=== PATIENT | female | born 1980 | race Caucasian/White ===

== ENCOUNTER 2019-03-27 09:59 | Emergency (ER) | payer OTHER, SELFPAY ==
[2019-03-27 10:00] VITALS: BP 150/114; PULSE 99; RESP 16; TEMP 36.5; BMI 25.7
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
[2019-03-27] MEDS: Ketorolac 30 MG/ML Syringe IV (10:52)
[2019-03-27] MEDS: 0.9% Normal Saline 1,000 ML 150 ML IV (10:52)
[2019-03-27 11:52] VITALS: BP 124/68; PULSE 68; RESP 15
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
[2019-03-27 14:15] VITALS: PULSE 66; RESP 14
== END 2019-03-27 14:15 | disposition home or self-care (01) ==
PROVIDERS: Emergency Provider Emergency Medicine; Family Provider Family Medicine; PCP Family Medicine
DX: S16.1XXA Strain of muscle, fascia and tendon at neck level, initial encounter (principal); M62.838 Other muscle spasm; X50.1XXA Overexertion from prolonged static or awkward postures, initial encounter; Y93.89 Activity, other specified; Y92.89 Other specified places as the place of occurrence of the external cause; Y99.8 Other external cause status
CPT/HCPCS: 72141; 96361; 96374; 99283; J7030; A4216

== ENCOUNTER 2019-11-24 22:04 | Emergency (ER) | payer OTHER, SELFPAY ==
[2019-11-24 22:05] VITALS: BP 132/81; PULSE 124; RESP 15; TEMP 38.2; O2SAT 95; BMI 25.2
--- NOTE | 2019-11-24 22:20 | ED.DCSUM_ITS ---
History of Present Illness Chief Complaint: General Illness Informant: Patient Onset: Yesterday Context: Sudden Onset Timing: Continuous Quality: malaised, fevers, achy Location: all over Current Severity: Severe Maximum Severity: Severe Worsened by: vomiting Relieved by: nothing Associated Symptoms: fever to 104. myalgias. [employer] cough. n/v w/o blood. Narrative: Malaise and myalgias, cough, vomiting, headache. No neck stiffness or confusion. 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 Past Medical History - Allergies and Home Meds Allergies/Adverse Reactions: Allergies Sulfa (Sulfonamide Antibiotics) Allergy (Verified 11/24/19 22:09) Hives Primary Care Physician: Luis Hong MD [Primary Care Provider] - As Needed Surgical History: - - ASD repair Lives: With Family Smoking Status: Never smoker Review of Systems General: Reports: Chills, Fever, Malaise. Denies: Sweats Eyes: Denies: Visual changes - bilaterally, Diplopia ENT: Reports: Sore throat. Denies: Bilateral ear pain, Rhinorrhea Cardiovascular: Denies: Chest pain, Palpitations Respiratory: Reports: Cough. Denies: Dyspnea, Sputum, Dyspnea on exertion Gastrointestinal: Reports: Nausea, Vomiting. Denies: Abdominal pain, Diarrhea, Melena, Hematochezia Genitourinary: Denies: Dysuria, Hematuria, Frequency Musculoskeletal: Reports: Myalgias. Denies: Neck pain, Back pain, Swelling Skin: Denies: Rash, Wounds Neurological: Reports: Headache. Denies: Weakness, Numbness Physical Exam Vital Signs/Narrative: Vital Signs Temp Pulse Resp BP Pulse Ox 11/24/19 22:05 100.8 F H 124 H 15 132/81 H 95 Inital Vital Signs reviewed: Yes General: Well nourished, Well developed, No Acute Distress Head: Normocephalic, Atraumatic Eyes: Perrl, EOMI ENT: Moist mucous membranes, No rhinorrhea, - - POP clear Neck: Supple, Nontender, No lymphadenopathy Cardiovascular: Regular rate, Regular rhythm, No murmurs, Tachycardia Respiratory: No distress, CTA bilaterally, Chest nontender Abdomen: Soft, Nontender, Nondistended, Normal bowel sounds Back: Nontender, Normal Inspection Extremities: Nontender, No edema, - - orthotic boot on RLE due to foot fracture. no hot, erythemetous, swollen joints. Skin: Normal color, No rash, No Trauma Neurological: Alert, Oriented x3, Cranial nerves II-XII grossly intact, Normal Strength, Normal Sensation, Normal Gait Psychological: Normal affect, Normal Mood Diagnostic/Tx/Re-eval - Medical Decision Making Suspect patient has influenza. She was treated with a liter of fluid, Toradol, GI cocktail, Reglan, and Tamiflu. She felt much better on reevaluation. She is comfortable with discharge plan and prescription for Tamiflu was offered. Symptomatic/supportive care with hydration and fever control advised. ED Disposition - Plan for ED Patient: Disposition: Home or Assisted Living Diagnosis: Influenza-like illness Instructions: INFLUENZA (Adult) Prescriptions: Oseltamivir Phosphate [Tamiflu] 75 mg PO BID #9 cap Prescription Printed Ondansetron [Zofran Odt] 4 - 8 mg PO Q8H PRN PRN #16 tab PRN Reason: Nausea Prescription Printed Referrals: Luis Hong MD [Primary Care Provider] - As Needed
[2019-11-24] MEDS: 0.9% Normal Saline 1,000 ML 999 ML IV (22:38)
[2019-11-24] MEDS: Ondansetron 4 MG/2 ML Vial IV (22:38)
[2019-11-24] MEDS: Ketorolac 30 MG/ML Syringe IV (22:39)
[2019-11-24] MEDS: Oseltamivir Phosphate 75 MG Capsule PO (23:24)
== END 2019-11-25 00:20 | disposition home or self-care (01) ==
PROVIDERS: Emergency Provider Emergency Medicine; PCP Family Medicine
DX: J11.1 Influenza due to unidentified influenza virus with other respiratory manifestations (principal)
CPT/HCPCS: 96361; 96374; 96375; 99285; J7030; A4216; J2405

== ENCOUNTER 2022-01-28 11:08 | Emergency (ER) | payer OTHER, SELFPAY ==
[2022-01-28 11:08] VITALS: BP 161/97; PULSE 64; RESP 18; TEMP 36.2; O2SAT 99; BMI 26.5
--- NOTE | 2022-01-28 11:18 | EKG12_ITS ---
Test Reason : CHEST PAIN Blood Pressure : / mmHG Vent. Rate : 062 BPM Atrial Rate : 062 BPM P-R Int : 152 ms QRS Dur : 088 ms QT Int : 430 ms P-R-T Axes : -30 024 062 degrees QTc Int : 436 ms Unusual P axis, possible ectopic atrial rhythm Low voltage QRS Abnormal ECG Confirmed by MAE NICHOLS, ELVA ([id number]), managing editor JOEY LINDA ([id number]) on 01/31/2022 1:53:03 PM Referred By: ELISA Confirmed By:ELVA WALL MD
--- NOTE | 2022-01-28 11:26 | RAD_ITS ---
STUDY: X-RAY CHEST REASON FOR EXAM: Female, 41 years old. Chest pain TECHNIQUE: Single AP portable view of the chest. COMPARISON: None. FINDINGS: EKG electrodes are seen. The lungs are clear and expanded. There is no demonstrated pleural abnormality. Normal size heart. Normal mediastinum and rogelio. Normal visualized pulmonary arteries. Normal visualized aortic arch and descending thoracic aorta. Normal visualized thoracic spine. Normal visualized ribs, clavicles, and shoulders. There is no demonstrated abnormality of the visualized soft tissue structures of the upper abdomen. RAD/Chest 1 View (Portable) IMPRESSION: Normal x-ray examination of the chest. Electronically Signed: Tashi Khan MD at 12:00 EDT ,
--- NOTE | 2022-01-28 11:39 | ED.VIS.CHEST ---
HPI History of Present Illness Chief Complaint: Chest Pain Narrative Narrative: 40-year-old female presenting with chest pain which is retrosternal. She describes it as initially kind of an aching which dissipates after seconds. No associated diaphoresis. No radiation of pain. No associated shortness of breath. No fever, chills, cough. No known injury. Patient states she has some leaky valves and history of ASD defect which was repaired as a child. No HI history. No history of DVT/PE and no risk factors. PFSH PFSH Medical History ASD (atrial septal defect) Leaky heart valve Home Medications multivitamin 1 ea PO DAILY 03/27/19 [History Last Taken Unknown] omega 7-vix-krp-fish oil 1 tab PO DAILY 03/27/19 [History Last Taken Unknown] cetirizine 10 mg PO DAILY 11/24/19 [History Last Taken Unknown] ondansetron 4 - 8 mg PO Q8H PRN PRN #16 tab 11/24/19 [Rx Last Taken Unknown] oseltamivir 75 mg PO BID #9 cap 11/24/19 [Rx Last Taken Unknown] Allergy/AdvReac Type Severity Reaction Status Date / Time Sulfa (Sulfonamide Allergy Hives Verified 01/28/22 11:12 Antibiotics) Social History Smoking Status: Never smoker ROS [facility] ED Constitutional Constitutional ED: Denies chills or fever(s) Eyes Eyes: Denies blurry vision or change in vision ENT ENT ED: Denies rhinorrhea or sore throat Cardiovascular Cardiovascular: Reports as per HPI Respiratory/Chest Respiratory/Chest: Denies cough or dyspnea Gastrointestinal Gastrointestinal: Denies abdominal pain, nausea or vomiting Genitourinary Genitourinary ED: Denies dysuria or hematuria Musculoskeletal Musculoskeletal: Denies arthralgias or myalgias Integumentary Denies Abrasions or rash Neurologic Neurologic: Denies headache(s) or weakness Psychiatric Psychiatric: Denies anxiety or depression EXAM Physical Exam Const Vital Signs: 01/28/22 11:08 01/28/22 11:18 Temperature 97.1 F L Temperature Source Temporal Pulse Rate 64 Respiratory Rate 18 Respiratory Effort Normal Non-Labored Respiratory Pattern Normal Blood Pressure 161/97 H Blood Pressure Mean 118 Pulse Ox 99 Oxygen Delivery Method Room Air Room Air Positive well developed General Appearance ED: well developed and NAD; Negative for pallor HEENT normocephalic and atraumatic Eyes PERRL and EOMs intact bilaterally Chest Wall inspection of chest normal and palpation of chest normal Resp normal respiratory effort Effort and Inspection: respiratory distress Cardio regular rate and regular rhythm GI normal to inspection, nondistended, normoactive bowel sounds Extremity normal to inspection General Extremety ED: Negative for edema or tenderness General Extremity: Negative for edema Neuro oriented x3 and no sensory deficits noted Sensorium / Orientation: awake and alert Motor Exam: strength 5/5 throughout Psych mental status grossly normal Skin no rashes or lesions noted General Skin Exam: Negative for jaundice or pallor Heart Score History: Slightly/Non-Suspicious ECG: Normal Age: </= 45 years Risk Factors: No Risk Factors Troponin: </= Normal Limit Score: 0 MDM MDM MDM Narrative Medical decision making narrative: Patient presenting with fleeting episodes of chest pain which are retrosternal. No history of HI. She does have hyperlipidemia which she is currently trying to control with diet. She is not on any medication for this. She does not have any other cardiac risk factors. EKG on my interpretation is a sinus rhythm with a ventricular rate of 62 bpm without sign of ischemic change. Chest x-ray on my interpretation shows no acute cardiopulmonary process and the radiologist agree. Patient is PERC negative. Patient CBC and BMP are unremarkable. High-sensitivity troponin is less than 3. Patient's pain does not sound cardiac in nature and orders that sound pleuritic or sharp in nature. I do not believe she is repeat blood work or imaging. I feel she is stable for discharge home. She is counseled to follow-up with her primary care provider to ensure resolution. Impression: 1. Chest pain noncardiac Lab Data Labs: Laboratory Results - last 24 hr 01/28/22 01/28/22 11:25 11:25 WBC 8.6 RBC 4.51 Hgb 12.7 Hct 38.2 MCV 84.7 MCH 28.2 MCHC 33.2 RDW Std Deviation 36.4 RDW Coeff of Francheska 11.9 Plt Count 408 MPV 8.9 Immature Gran % (Auto) 0.300 Neut % (Auto) 55.1 Lymph % (Auto) 34.0 [place] % (Auto) 6.9 Eos % (Auto) 3.2 Baso % (Auto) 0.5 Absolute Neuts (auto) 4.8 Absolute Lymphs (auto) 2.94 Nucleated RBC % 0 Sodium 135 L Potassium 4.1 Chloride 103 Carbon Dioxide 29.0 Anion Gap 3 L BUN 8 Creatinine 0.62 Estim Creat Clear Calc 96.78 Est GFR (MDRD) Af Amer 135 Est GFR (MDRD) Non-Af 111 BUN/Creatinine Ratio 12.9 Glucose 88 Calcium 9.3 Troponin I High Sens < 3 L Radiography Diagnostic Testing: Clinical Impression(s) from Imaging Studies Chest X-Ray 01/28/22 11:26 IMPRESSION: Normal x-ray examination of the chest. Electronically Signed: Tashi Khan MD at 12:00 EDT , Discharge Plan Triage Chief Complaint: Chest Pain ED Provider: Varinder Cordero Dx/Rx/DC Orders Instructions: ED Chest Pain, Noncardiac Prescriptions: No Action multivitamin 1 EACH tablet 1 ea PO DAILY RF: 0 omega 4-rki-vxx-fish oil 500 MG capsule,delayed release(DR/EC) 1 tab PO DAILY RF: 0 cetirizine 10 MG capsule 10 mg PO DAILY RF: 0 oseltamivir 75 MG capsule 75 mg PO BID Qty: 9 RF: 0 ondansetron 4 MG tablet 4 - 8 mg PO Q8H PRN PRN (Reason: Nausea) Qty: 16 RF: 0 Primary Care Provider: Luis Hong Referrals: Luis Hong MD [Primary Care Provider] - Disposition Disposition: Home, Self Care
[2022-01-28 11:41] LABS: Absolute Lymphocyte Count 2.94 X10^3/uL (0.83-4.51); Absolute Neutrophil Count 4.8 X10^3/uL (2.0-7.7); Basophil# 0.04 X10^3/uL; Basophil% 0.5 % (0-1); Eosinophil# 0.28 X10^3/uL; Eosinophils% 3.2 % (0-5); Hematocrit 38.2 % (37-47); Hemoglobin 12.7 g/dL (12.0-15.0); Lymphocyte # 2.94 X10^3/ul (0.83-4.51); Mean Corp Hgb Conc 33.2 g/dL (32-36); Mean Corpuscular Hgb 28.2 pg (27.0-32.0); Mean Corpuscular Volume 84.7 fL (81-99); Mean Platelet Vol. 8.9 fl (6.2-12.0); Monocyte% 6.9 % (0-10); NRBC Flagged by Analyzer 0 % (0-5); Neutrophil # 4.75 X10^3/uL (2.7-7.7); Neutrophil % 55.1 % (47-70); Platelet Count 408 K/mm3 (150-450); RBC Distribution Width CV 11.9 % (11.6-14.6); RBC Distribution Width SD 36.4 fl (35.1-43.9); Red Blood Count 4.51 M/mm3 (4.2-5.4); White Blood Count 8.6 K/mm3 (4.4-11.0)
[2022-01-28 11:56] LABS: Anion Gap 3 (5-15); BUN 8 mg/dL (7-18); BUN/Creat Ratio 12.9 RATIO (10-20); Calcium,Total 9.3 mg/dL (8.5-10.1); Chloride 103 mmol/L (98-107); Creatinine, Serum 0.62 mg/dL (0.55-1.02); EST Glomerular Filtration Rate 111 mL/min (>60); Est Glom Filt Rate - Afr Amer 135 mL/min (>60); Estimated Creatinine Clearance 96.78 ml/min; Glucose 88 mg/dL (74-106); Potassium 4.1 mmol/L (3.5-5.1); Sodium Level 135 mmol/L (136-145); Troponin-I HS (w/2H Reflex) < 3 pg/mL (3.0-54.0)
[2022-01-28 12:54] VITALS: BP 131/70; PULSE 66; RESP 16; O2SAT 98
[2022-01-28 13:37] LABS: Reflex Troponin-HS? (from REC) Y
== END 2022-01-28 12:55 | disposition home or self-care (01) ==
PROVIDERS: Emergency Provider Student in an Organized Health Care Education/Training Program; PCP Family Medicine; Visit Provider Student in an Organized Health Care Education/Training Program
DX: R07.2 Precordial pain (principal); E78.5 Hyperlipidemia, unspecified
CPT/HCPCS: 71045; 80048; 84484; 85025; 93005; 99284; A4216

== ENCOUNTER 2022-05-29 08:48 | Emergency (ER) | payer OTHER, SELFPAY ==
[2022-05-29 08:50] VITALS: BP 139/71; PULSE 92; RESP 14; TEMP 36.3; O2SAT 99; BMI 27.7
--- NOTE | 2022-05-29 08:52 | CT_ITS ---
STUDY: CT SOFT TISSUE NECK WITH CONTRAST REASON FOR EXAM: Female, 41 years old. swelling, voice change PT REPORTS TO ER FROM HOME WITH SWOLLEN UVULA IN MOUTH. PT REPORTS SEVERE SORE THROAT AND IS HAVING PROBLEMS TALKING AND SWALLOWING. PT STATES SYMPTOMS STARTED WHEN SHE WOKE UP THIS MORNING. PT HAS BEEN SICK SINCE MONDAY. RADIATION DOSAGE (If Supplied By Facility): CTDIvol = ( 14.24 ) mGy, DLP = ( 818.19 ) mGycm TECHNIQUE: The patient was scanned in a multi-detector CT scanner. High resolution transaxial imaging was performed following intravenous administration of IV 100mL Isovue-300. Sagittal and coronal images were reconstructed. Individualized dose optimization techniques were used for this CT. COMPARISON: None. FINDINGS: There is mild swelling of the soft palate and the surrounding upper oropharyngeal mucosa, likely due to inflammation or infection. There is no abscess/fluid collection or narrowing of the airway. Diffuse level 2 subcentimeter lymphadenopathy is present on both sides of the neck. Normal bilateral parotid glands. Normal bilateral c consultant spaces. Normal bilateral parapharyngeal spaces. Normal bilateral carotid spaces. Normal bilateral sublingual and submandibular glands and spaces. Normal visualized nasopharynx. Normal retropharyngeal space. Normal perivertebral space. Normal visualized bilateral faucial tonsils. The visualized tongue, tongue base and are normal. There is no demonstrated solid or cystic mass lesion. There is no abnormal contrast enhancement. Normal epiglottis, bilateral vallecula and hypopharynx. The pre-epiglottic and paraglottic adipose spaces are normal. Normal visualized bilateral piriform sinuses, aryepiglottic folds, vocal cords, and arytenoid-cricoid articulations. Normal subglottic trachea. Normal bilateral lobes of the thyroid gland. Normal visualized pulmonary apices. Normal visualized paranasal sinuses. Normal visualized cervical spine. CT/Soft Tissue Neck WITH Contrast IMPRESSION: 1. There is mild swelling of the soft palate and the surrounding upper oropharyngeal mucosa, likely due to inflammation or infection. There is no abscess/fluid collection or narrowing of the airway. Diffuse level 2 subcentimeter lymphadenopathy is present on both sides of the neck. Electronically Signed: Te Álvarez MD at 9:48 EDT ,
[2022-05-29 08:56] VITALS: BP 139/71; PULSE 93; RESP 21; TEMP 36.3; O2SAT 99
[2022-05-29 08:57] VITALS: BP 139/71; PULSE 91; RESP 16; TEMP 36.3; O2SAT 98
[2022-05-29] MEDS: dexAMETHasone 10 MG/ML Vial IV (09:03)
[2022-05-29 09:09] LABS: Absolute Lymphocyte Count 2.39 X10^3/uL (0.83-4.51); Absolute Neutrophil Count 8.1 X10^3/uL (2.0-7.7); Basophil# 0.03 X10^3/uL; Basophil% 0.3 % (0-1); Eosinophil# 0.42 X10^3/uL; Eosinophils% 3.6 % (0-5); Hematocrit 38.6 % (37-47); Hemoglobin 12.8 g/dL (12.0-15.0); Lymphocyte # 2.39 X10^3/ul (0.83-4.51); Lymphocyte % 20.3 % (19-41); Mean Corp Hgb Conc 33.2 g/dL (32-36); Mean Corpuscular Hgb 27.8 pg (27.0-32.0); Mean Corpuscular Volume 83.7 fL (81-99); Mean Platelet Vol. 8.8 fl (6.2-12.0); Monocyte# 0.78 X10^3/uL; Monocyte% 6.6 % (0-10); NRBC Flagged by Analyzer 0 % (0-5); Neutrophil % 68.8 % (47-70); Platelet Count 430 K/mm3 (150-450); RBC Distribution Width CV 12.2 % (11.6-14.6); RBC Distribution Width SD 37.2 fl (35.1-43.9); Red Blood Count 4.61 M/mm3 (4.2-5.4); White Blood Count 11.8 K/mm3 (4.4-11.0)
[2022-05-29 09:40] LABS: Anion Gap 6 (5-15); BUN 7 mg/dL (7-18); BUN/Creat Ratio 10.1 RATIO (10-20); Calcium,Total 9.2 mg/dL (8.5-10.1); Chloride 108 mmol/L (98-107); Creatinine, Serum 0.69 mg/dL (0.55-1.02); EST Glomerular Filtration Rate 98 mL/min (>60); Est Glom Filt Rate - Afr Amer 118 mL/min (>60); Estimated Creatinine Clearance 86.96 ml/min; Glucose 104 mg/dL (74-106); Potassium 3.9 mmol/L (3.5-5.1); Sodium Level 140 mmol/L (136-145)
[2022-05-29 09:58] VITALS: BP 128/78; PULSE 98; RESP 14; TEMP 37.1; O2SAT 99
[2022-05-29 10:00] VITALS: BP 140/78; PULSE 84; RESP 14; TEMP 36.6; O2SAT 98
[2022-05-29 11:17] VITALS: BP 126/78; PULSE 88; RESP 16; TEMP 37.2; O2SAT 100
--- NOTE | 2022-05-29 15:45 | EX.ED.DYSGE1 ---
HPI History of Present Illness Chief Complaint: Other, Pain/Inj Informant: patient Onset/Context/Timing Onset: Today Timing: Continuous Current Severity: Moderate Worsened by: nothing Relieved by: nothing Associated Symptoms Associated Symptoms: voice change Narrative Narrative: Patient presents for swelling in her airway. Uvula is swollen. She noticed a change in her voice and difficulty swallowing. She never had this before. Nothing seemed to bring it on or make it worse. Nothing seems to make it better. No associated symptoms. Prior similar symptoms: No PFSH PFSH Medical History ASD (atrial septal defect) Leaky heart valve Home Medications omega 3-dha 60 mg-epa 90 mg-fish oil 500 mg capsule, delayed release 1 tab PO DAILY 03/27/19 [History Last Taken Unknown] cetirizine 10 mg capsule 10 mg PO DAILY 11/24/19 [History Last Taken Unknown] amoxicillin 875 mg-potassium clavulanate 125 mg tablet 1 tab PO BID #20 tabs 05/29/22 [Rx Last Taken Unknown] dexamethasone 4 mg tablet (Decadron) 4 mg PO DAILY #21 tabs 05/29/22 [Rx Last Taken Unknown] Allergy/AdvReac Type Severity Reaction Status Date / Time Sulfa (Sulfonamide Allergy Hives Verified 05/29/22 09:00 Antibiotics) Social History Smoking Status: Never smoker ROS ROS ED Constitutional Constitutional ED: Denies chills or fever(s) Eyes Eyes: Denies blurry vision ENT ENT ED: Reports sore throat; Denies ear pain Cardiovascular Cardiovascular: Denies chest pain Respiratory/Chest Respiratory/Chest: Denies cough Gastrointestinal Gastrointestinal: Denies abdominal pain or vomiting Genitourinary Genitourinary ED: Denies dysuria Musculoskeletal Musculoskeletal: Denies arthralgias or neck pain Integumentary Denies abscess Neurologic Neurologic: Denies headache(s) Psychiatric Psychiatric: Denies anxiety Endocrine Endocrinology: Denies cold intolerance Hematologic/Lymphatic Hematologic/Lymphatic: Denies easy bruising Allergic/Immunologic Allergic/Immunologic ED: Denies mouth swelling EXAM Physical Exam Const Vital Signs: 05/29/22 08:50 05/29/22 08:56 05/29/22 08:57 Temperature 97.3 F L 97.3 F L 97.3 F L Temperature Source Temporal Temporal Temporal Pulse Rate 92 93 91 Respiratory Rate 14 21 H 16 Blood Pressure 139/71 H 139/71 H 139/71 H Blood Pressure Mean 93 93 93 Pulse Ox 99 99 98 Oxygen Delivery Method Room Air Room Air Room Air 05/29/22 09:58 05/29/22 10:00 05/29/22 11:17 Temperature 98.7 F 97.8 F 98.9 F Temperature Source Temporal Temporal Temporal Pulse Rate 98 84 88 Respiratory Rate 14 14 16 Blood Pressure 128/78 H 140/78 H 126/78 H Blood Pressure Mean 94 98 94 Pulse Ox 99 98 100 Oxygen Delivery Method Room Air Room Air Room Air Positive well nourished and well developed General Appearance ED: well developed HEENT Reports moist mucous membranes HEENT Narrative: Uvula is diffusely swollen, hanging over the top of the tongue. Hot potato voice. Eyes PERRL and EOMs intact bilaterally Neck no lymphadenopathy Resp normal respiratory effort and clear to auscultation bilaterally Neuro oriented x3 and CN's II-XII intact bilaterally Sensorium / Orientation: alert Psych mental status grossly normal Skin no rashes or lesions noted MDM MDM MDM Narrative Medical decision making narrative: Patient had a CT that showed soft tissue swelling of the soft palate and upper oral pharyngeal mucosa. No definite abscess. No airway narrowing. Lymphadenopathy noted. White count 11.8. Other labs unremarkable. Patient was treated with steroids and antibiotics. Discussed with Dr. Zamora who will follow up. Advised Decadron and Augmentin. Return for any new or worsening issues. Disposition discharge home. Return for trouble swallowing or trouble breathing. Impression #1 uvulitis Lab Data Attestation: I reviewed the patient's lab results. Labs: Laboratory Results - last 24 hr 05/29/22 05/29/22 08:59 08:59 WBC 11.8 H RBC 4.61 Hgb 12.8 Hct 38.6 MCV 83.7 MCH 27.8 MCHC 33.2 RDW Std Deviation 37.2 RDW Coeff of Francheska 12.2 Plt Count 430 MPV 8.8 Immature Gran % (Auto) 0.400 Neut % (Auto) 68.8 Lymph % (Auto) 20.3 [place] % (Auto) 6.6 Eos % (Auto) 3.6 Baso % (Auto) 0.3 Absolute Neuts (auto) 8.1 H Absolute Lymphs (auto) 2.39 Nucleated RBC % 0 Sodium 140 Potassium 3.9 Chloride 108 H Carbon Dioxide 26.0 Anion Gap 6 BUN 7 Creatinine 0.69 Estim Creat Clear Calc 86.96 Est GFR (MDRD) Af Amer 118 Est GFR (MDRD) Non-Af 98 BUN/Creatinine Ratio 10.1 Glucose 104 Calcium 9.2 Radiography Diagnostic Testing: Clinical Impression(s) from Imaging Studies Soft Tissue Neck CT 05/29/22 08:52 IMPRESSION: 1. There is mild swelling of the soft palate and the surrounding upper oropharyngeal mucosa, likely due to inflammation or infection. There is no abscess/fluid collection or narrowing of the airway. Diffuse level 2 subcentimeter lymphadenopathy is present on both sides of the neck. Electronically Signed: Te Álvarez MD at 9:48 EDT Reading Location ID and State: [address] [place] [address] , Service support , Discharge Plan Triage Chief Complaint: Other, Pain/Inj Other Complaint: Sore Throat ED Provider: Elia Foy Dx/Rx/DC Orders Instructions: ED Uvulitis Prescriptions: New amoxicillin-pot clavulanate 875-125 mg tablet 1 tab PO BID Qty: 20 0RF dexamethasone [Decadron] 4 mg tablet 4 mg PO DAILY Qty: 21 0RF Rx Instructions: 8mg PO BID for 3d, then 4mg BID for 3d, then 4mg QD for 3d No Action omega 7-zmj-ncv-fish oil 500 MG capsule,delayed release(DR/EC) 1 tab PO DAILY cetirizine 10 MG capsule 10 mg PO DAILY Primary Care Provider: Luis Hong Activity Restrictions/Additional Instructions: Call Dr. Zamora for follow up [phone]. Disposition Disposition: Home, Self Care Discharge Date/Time: 05/29/22 11:18
== END 2022-05-29 11:18 | disposition home or self-care (01) ==
PROVIDERS: Emergency Provider Emergency Medicine; PCP Family Medicine; Visit Provider Emergency Medicine
DX: J02.9 Acute pharyngitis, unspecified (principal); R59.9 Enlarged lymph nodes, unspecified
CPT/HCPCS: 70491; 80048; 85025; 96365; 96375; 99284; Q9967; A4216; J0295